=== PATIENT | female | born 1940 | race American Indian/Alaskan Native ===

== ENCOUNTER 2019-10-28 09:45 | Outpatient (CLI) | payer MEDICARE ==
[2019-10-28 14:48] LABS: Eosinophils # (Auto) 0.2 K/mm3 (0.0-0.4); Hematocrit 40.6 % (30.3-42.9); Hemoglobin 13.3 gm/dl (10.1-14.3); Lymphocytes # (Auto) 1.2 K/mm3 (1.2-5.4); Lymphocytes % (Auto) 24.3 % (13.4-35.0); Mean Corpuscular HGB Conc 33 % (30-34); Mean Corpuscular Volume 89 fl (79-97); Monocytes # (Auto) 0.4 K/mm3 (0.0-0.8); Monocytes % (Auto) 7.4 % (0.0-7.3); Platelet Count 301 K/mm3 (140-440); Red Blood Count 4.54 M/mm3 (3.65-5.03)
[2019-10-28 15:08] LABS: Alanine Aminotransferase 9 units/L (7-56); Albumin 3.8 g/dL (3.9-5); Chol/HDL Ratio 2.16 %; HDL Cholesterol 80 mg/dL (40-59); LDL Cholesterol,Direct 90 mg/dL (50-130)
[2019-10-28 15:25] LABS: Bilirubin,Direct < 0.2 mg/dL (0-0.2)
== END 2019-10-28 09:46 | disposition home or self-care (01) ==
LOC: LAB 09:45
PROVIDERS: ATTEND Family Medicine
DX: I48.91 Unspecified atrial fibrillation (principal); N18.9 Chronic kidney disease, unspecified
CPT/HCPCS: 36415; 80061; 80076; 80156; 80177; 85025